=== PATIENT | female | born 1980 | race Caucasian/White ===

== ENCOUNTER → 2018-11-19 | Emergency (ER) | payer OTHER | END | disposition home or self-care (01) | LOC: JER 20:41 ==

== ENCOUNTER 2019-03-11 11:47 | Emergency (ER) | payer OTHER ==
[2019-03-11 12:05] VITALS: BP 110/75; PULSE 63; TEMP 98.5; BMI 22.9
--- NOTE | 2019-03-11 13:42 | PDOC ---
History of Present Illness - General Chief Complaint: Injury Stated Complaint: R ANKLE PAIN Time Seen by Provider: 03/11/19 13:23 - History of Present Illness Initial Comments: 03/11/19 16:45 Chief complaint: Right ankle pain HPI: Injured right ankle playing soccer 2 days ago. Persistent pain and swelling. However she is ambulating adequately, pain and stability improved with wearing a tight boot around her ankle Review of systems: Denies distal numbness tingling pain or weakness. Denies pain in the foot, calf, knee, thigh, or hip Social/family history reviewed and noncontributory Past medical history: No significant ankle trauma in the past. Otherwise healthy without current medical or surgical illness Physical exam: Alert and oriented well-developed well-nourished no acute distress cheerful and cooperative Afebrile, vital signs normal Right ankle: Mild swelling and tenderness over the anterior lateral ligaments. No deformity. No instability. Pulses full. No distal sensory or motor deficits. No fifth metatarsal tenderness or deformity. Impression: Ankle sprain rule out fracture Plan: X-ray negative for fracture. Otilio wrap applied. Continue wearing boot for support. Rest ice and elevation, limited standing and ambulation until pain and swelling improved orthopedic referral if no improvement in 1 week.. Ambulatory and in no significant pain or other distress at discharge to follow- up as directed Past History - Past Medical History Allergies/Adverse Reactions: Allergies Allergy/AdvReac Type Severity Reaction Status Date / Time No Known Allergies Allergy Verified 03/11/19 11:51 Home Medications: Ambulatory Orders NK [No Known Home Medication] 11/19/18 COPD: No - Psycho Social/Smoking Cessation Hx Smoking History: Never smoked Hx Alcohol Use: Yes (RARE) Drug/Substance Use Hx: No *Physical Exam - Vital Signs Last Vital Signs Temp Pulse Resp BP Pulse Ox 98.5 F 63 15 110/75 100 03/11/19 11:50 03/11/19 11:50 03/11/19 11:50 03/11/19 11:50 03/11/19 11:50 Medical Decision Making - Medical Decision Making 03/11/19 14:19 X-ray reviewed: Mild soft tissue swelling, ankle mortise maintained, no fracture or other abnormality of bone or soft tissues. Otilio applied. States that her snug fitting when her boot relieves the pain and allows her to ambulate well. Rest ice elevation Advil. Orthopedic follow-up if no improvement. Adequately ambulatory and in no significant pain or other distress at discharge to follow-up as directed. Discharge - Discharge Information Problems reviewed: Yes Clinical Impression/Diagnosis: Right ankle sprain Qualifiers: Encounter type: initial encounter Involved ligament of ankle: tibiofibular ligament Qualified Code(s): S93.431A - Sprain of tibiofibular ligament of right ankle, initial encounter Condition: Stable Disposition: HOME - Admission No - Follow up/Referral Referrals: Napoleon Mckeon MD [Staff Physician] - 1 week - Patient Discharge Instructions Patient Printed Discharge Instructions: DI for Ankle Sprain Additional Instructions: Rest, ice, elevate, Advil for pain and swelling. Otilio wrap for ankle support. A limited amount of standing and walking is recommended to maintain muscle tone. If pain or swelling persist 1 week, recheck as directed medical record specialist. - Post Discharge Activity
== END 2019-03-11 14:27 | disposition home or self-care (01) ==
LOC: FER 11:47
DX: S93.431A Sprain of tibiofibular ligament of right ankle, initial encounter (principal); X58.XXXA Exposure to other specified factors, initial encounter; Y93.66 Activity, soccer; Y92.322 Soccer field as the place of occurrence of the external cause
CPT/HCPCS: 73610-TC-RT-FY; 99281-25

== ENCOUNTER → 2020-09-01 | Day surgery (SDC) | payer OTHER | END | disposition home or self-care (01) | LOC: JRADUS-SUR 08:32 | PROVIDERS: ATTEND Physician Assistant Surgical | PROC: 0H9T3ZX Drainage of Right Breast, Percutaneous Approach, Diagnostic (ICD-10-PCS; principal; 2020-09-01) | DX: D24.1 Benign neoplasm of right breast (principal) | CPT/HCPCS: 19083; 87899; A4648 ==

== ENCOUNTER 2021-11-10 20:18 | Emergency (ER) | payer OTHER ==
[2021-11-10 20:28] VITALS: BP 139/100; PULSE 90; RESP 18; TEMP 99.1; BMI 26.4
[2021-11-10] MEDS ORDERED: morphine CARPU-JECT 4 MG/1 ML DISP.SYRIN IVPUSH ONE (20:35)
[2021-11-10] MEDS ORDERED: SODIUM CHLORIDE 1,000 ML IV ONE (20:35)
[2021-11-10] MEDS ORDERED: ONDANSETRON 4 MG/2 ML VIAL IVPUSH ONE (20:37)
[2021-11-10] MEDS ORDERED: morphine SULFATE 4 MG/ML VIAL ONE (20:38)
[2021-11-10] MEDS ORDERED: ONDANSETRON 4 MG/2 ML VIAL ONE (20:38)
[2021-11-10 21:05] LABS: EPITHELIAL CELLS FEW /hpf
[2021-11-10 21:07] LABS: HEMATOCRIT 38.4 % (32.4-45.2); HEMOGLOBIN 13.3 G/dL (10.7-15.3); MCH 32.5 pg (25.7-33.7); MCHC 34.7 g/dl (32.0-36.0); MEAN CELL VOLUME 93.8 fl (80-96); MEAN PLT VOLUME 8.1 fl (7.5-11.1); PLATELET COUNT 297.1 10^3/uL (134-434); RBC 4.09 10^6/uL (3.60-5.2); RDW 13.1 % (11.6-15.6); WHITE BLOOD COUNT 9.8 10^3/uL (4.0-10.8)
[2021-11-10 21:12] LABS: ALBUMIN 4.1 g/dl (3.4-5.0); BILIRUBIN,TOTAL 0.6 mg/dl (0.2-1); CALCIUM 9.5 mg/dl (8.5-10); CREATININE 0.7 mg/dl (0.55-1.3); TOT PROT 7.3 g/dl (6.4-8.2)
[2021-11-10 21:54] LABS: PLATELET ESTIMATE ADEQUATE
== END 2021-11-10 22:05 | disposition home or self-care (01) ==
LOC: FER 20:18
PROC: 3E033NZ Introduction of Analgesics, Hypnotics, Sedatives into Peripheral Vein, Percutaneous Approach (ICD-10-PCS; principal; 2021-11-10)
PROC: 3E033GC Introduction of Other Therapeutic Substance into Peripheral Vein, Percutaneous Approach (ICD-10-PCS; 2021-11-10)
PROC: 3E0337Z Introduction of Electrolytic and Water Balance Substance into Peripheral Vein, Percutaneous Approach (ICD-10-PCS; 2021-11-10)
DX: R10.31 Right lower quadrant pain (principal)
CPT/HCPCS: 0241U-QW; 36415; 74176-TC; 80053; 81003; 81015; 81025; 85025; 99285-25